=== PATIENT | male | born 1970 | race Caucasian/White ===

== ENCOUNTER 2016-06-12 12:06 | Emergency (ER) | payer OTHER ==
[2016-06-12 12:15] VITALS: O2SAT 94
--- NOTE | 2016-06-12 12:27 | CPEKG ---
Heart Rate: 90 RR Interval: 667 P-R Interval: 164 QRSD Interval: 94 QT Interval: 340 QTC Interval: 416 P [place]: 62 QRS [place]: 64 T Wave [place]: 2 EKG Severity - NORMAL ECG - EKG Impression: SINUS RHYTHM Electronically Signed By: Rj Gar 12-Jun-2016 14:32:51
[2016-06-12 12:38] LABS: % IMMATURE GRANULYOCYTES 0.3 % (0.0-1.1); ABSOLUTE IMMATURE GRANULOCYTES 0.02 10^3/uL (0.00-0.10); ADD DIFF? NO; ADD MORPH? NO; ADD SCAN? NO; ATYPICAL LYMPHOCYTE FLAG 0 (0-99); FRAGMENT RBC FLAG 0 (0-99); HEMATOCRIT 47.3 % (40.0-51.0); HEMOGLOBIN 16.1 g/dL (13.7-17.5); LEFT SHIFT FLG 0 (0-99); LIPEMIA HEMOLYSIS FLAG 90 (0-99); MEAN CELL VOLUME 91.1 fL (81.5-99.8); MEAN PLATELET VOLUME 9.8 fL (8.7-11.7); PLATELET CLUMPS FLAG 10 (0-99); PLATELET COUNT 204 10^3/uL (150-400); RED BLOOD CELL COUNT 5.19 10^6/uL (4.40-6.38); RED CELL DISTRIBUTION WIDTH 13.1 % (11.5-15.2)
--- NOTE | 2016-06-12 12:53 | EDPHY ---
H & P Stated Complaint: cp/tx for lymes disease Time Seen by Provider: 06/12/16 12:47 HPI/ROS: HPI: 46-year-old male presents to emergency department with chief concern 09/08 nonradiating, non pleuritic, anterior midsternal chest pain/pressure. Onset at 10:30 a.m. while he was walking at work. Denies fever, chills, dizziness, shortness of breath, nausea, vomiting, diarrhea. Reports ongoing chest pain since he was a child. Had his 1st stress test at age 14. Last stress test [address] Flores of [facility]. Has had URI symptoms for 3 weeks including nasal congestion and cough. Diagnosed with Lyme disease and has had exacerbation of chest pain since last fall. Started on doxycycline and nystatin last week. No recent travel. No calf pain or swelling. Never smoker. History of hypertension for which she takes lisinopril. ROS:10 point review of systems is negative other than as stated in HPI Source: Patient Exam Limitations: No limitations - Personal History Current Tetanus/Diphtheria Vaccine: Unsure - Medical/Surgical History Hx Asthma: No Hx Chronic Respiratory Disease: No Hx Diabetes: No Hx Cardiac Disease: No Hx Renal Disease: No Hx Cirrhosis: No Hx Alcoholism: No Hx HIV/AIDS: No Hx Splenectomy or Spleen Trauma: No Other PMH: HIGH CHOLESTEROL, HTN,. "IRREGULAR HEARTBEAT" - Family History Significant Family History: No pertinent family hx - Social History Smoking Status: Never smoked Alcohol Use: Rarely Drug Use: None - Physical Exam Exam: Vital signs reviewed by me General: Awake, alert, calm, cooperative. No acute distress. Head: Normalocephalic. Atraumatic. EENT: PERRLA. EOMI. No pallor or injection. Anicteric. No nystagmus. No injection. TMs intact bilaterally with normal landmarks. No rhinnorhea, nasal passages clear. Oropharynx without redness, exudates, or lesions. Tonsils 2+ bilaterally, no exudates. Neck: Supple, nontender. No lymphadenopathy. Full range of motion. No meningismus. Respiratory: Breathing unlabored. Breath sounds equal bilaterally and clear to auscultation. No adventitious sounds. CV: Chest nontender, atraumatic. Heart rate regular. No murmur, distal pulses 2+ bilaterally. Brisk cap refill all extremities. GI: Abdomen soft, nontender. Bowel sounds normoactive and positive x4 quadrants. Neuro: Alert. Oriented x 3. Speech clear. Nonfocal cranial nerves throughout. Sensation intact all extremities. Skin: Skin warm, dry, intact. Skin turgor normal. Extremities: Full range of motion in all 4 extremities. Strength 5+ all extremities. Constitutional: Initial Vital Signs Temperature (C) 36.7 C 06/12/16 12:13 Heart Rate 92 06/12/16 12:13 Respiratory Rate 18 06/12/16 12:13 Blood Pressure 138/91 H 06/12/16 12:13 O2 Sat (%) 94 06/12/16 12:13 O2 Delivery Mode Room Air Allergies/Adverse Reactions: No Known Allergies Allergy (Verified 06/12/16 12:12) Home Medications: Medication Instructions Recorded Doxycycline Calcium 06/12/16 Nystatin 06/12/16 Medical Decision Making - Diagnostics Imaging: Chest, PA and Lateral History: Chest pain Comparison: PA 03/08/2009, PA and lateral 01/18/2009 Findings: Lungs are clear, without pulmonary nodule, infiltrate or consolidation. Heart size and pulmonary vascularity are normal. There is no adenopathy or mass lesion. There is no pleural effusion or pneumothorax. There is no free air beneath either hemidiaphragm. There is chronic degenerative spurring in the lower thoracic spine. Bones are unremarkable for age. EKG leads overlie the chest. Impression: Stable. Nothing acute identified. Dictated By: Rj Oakley MD ED Course/Re-evaluation: 38-year-old male presents to emergency department with chest pain x1 hour. at onset, 2/10 now. Has a history of chest pain since he was a child. Recently diagnosed with Lyme disease and began doxy and nystatin. Has had URI symptoms for 3 weeks. Afebrile. Heart rate 92. 94% on room air. EKG sinus rhythm, rate 90, normal intervals, no axis deviation, no evidence of acute ischemia. No evidence of dysrhythmia. Troponin is negative. Chest x-ray negative for anything acute. Will have him follow up with primary care tomorrow. At time of discharge vitals are stable, he has no pain. Differential Diagnosis: Differential diagnosis includes but is not limited to non cardiac etiology for chest pain including costochondritis or musculoskeletal pain, anxiety, acute coronary syndrome, pneumothorax, pulmonary embolism, pneumonia, Lyme disease - Data Points Laboratory Results: Laboratory Results 06/12/16 12:32 06/12/16 12:32 06/12/16 06/12/16 12:32 12:32 WBC 6.24 10^3/uL 10^3/uL (3.80-9.50) RBC 5.19 10^6/uL 10^6/uL (4.40-6.38) Hgb 16.1 g/dL g/dL (13.7-17.5) Hct 47.3 % % (40.0-51.0) MCV 91.1 fL fL (81.5-99.8) MCH 31.0 pg pg (27.9-34.1) MCHC 34.0 g/dL g/dL (32.4-36.7) RDW 13.1 % % (11.5-15.2) Plt Count 204 10^3/uL 10^3/uL (150-400) MPV 9.8 fL fL (8.7-11.7) Neut % (Auto) 68.1 % % (39.3-74.2) Lymph % (Auto) 24.7 % % (15.0-45.0) [place] % (Auto) 5.8 % % (4.5-13.0) Eos % (Auto) 0.6 % % (0.6-7.6) Baso % (Auto) 0.5 % % (0.3-1.7) Nucleat RBC Rel Count 0.0 % % (0.0-0.2) Absolute Neuts (auto) 4.25 10^3/uL 10^3/uL (1.70-6.50) Absolute Lymphs (auto) 1.54 10^3/uL 10^3/uL (1.00-3.00) Absolute Monos (auto) 0.36 10^3/uL 10^3/uL (0.30-0.80) Absolute Eos (auto) 0.04 10^3/uL 10^3/uL (0.03-0.40) Absolute Basos (auto) 0.03 10^3/uL 10^3/uL (0.02-0.10) Absolute Nucleated RBC 0.00 10^3/uL 10^3/uL (0-0.01) Immature Gran % 0.3 % % (0.0-1.1) Immature Gran # 0.02 10^3/uL 10^3/uL (0.00-0.10) Sodium 141 mEq/L mEq/L (134-144) Potassium 4.5 mEq/L mEq/L (3.5-5.2) Chloride 105 mEq/L mEq/L (97-110) Carbon Dioxide 23 mEq/l mEq/l (22-31) Anion Gap 13 mEq/L mEq/L (8-16) BUN 15 mg/dL mg/dL (7-23) Creatinine 0.8 mg/dL mg/dL (0.7-1.3) Estimated GFR > 60 Glucose 132 mg/dL H mg/dL (70-100) Calcium 9.3 mg/dL mg/dL (8.5-10.4) Troponin I < 0.012 ng/mL ng/mL (0-0.034) Departure - Departure Disposition: Home, Routine, Self-Care Clinical Impression: Chest pain in adult Condition: Good Instructions: Chest Pain (ED) Additional Instructions: Plan: Follow up with primary care tomorrow for recheck without fail--When you call to schedule appointment, please let the office know you are an "ER follow up" appointment" You may use 600 mg of ibuprofen every 6 hours for fever, inflammation, or pain. Always take ibuprofen with food and stay well hydrated while taking. Do not exceed the maximum allowable dose in a 24 hour period which is 2400 mg. You may use 1000 mg of Tylenol every 8 hours. This may be staggered with the ibuprofen. Do not exceed the maximum dose in a 24 hour period which is 3 GM or 3000 mg. Referrals: Junie Whaley MD [Primary Care Provider] - As per Instructions
[2016-06-12 13:01] LABS: ANION GAP 13 mEq/L (8-16); CALCIUM 9.3 mg/dL (8.5-10.4); CARBON DIOXIDE 23 mEq/l (22-31); CHLORIDE 105 mEq/L (97-110); CREATININE 0.8 mg/dL (0.7-1.3); GLOMERULAR FILTRATION RATE > 60; GLUCOSE 132 mg/dL (70-100); POTASSIUM 4.5 mEq/L (3.5-5.2); SODIUM 141 mEq/L (134-144)
[2016-06-12 13:13] LABS: TROPONIN I < 0.012 ng/mL (0-0.034)
[2016-06-12 14:17] VITALS: BP 128/78; PULSE 70; RESP 14; TEMP 98.4
== END 2016-06-12 14:16 | disposition home or self-care (01) ==
DX: R07.89 Other chest pain (principal)

== ENCOUNTER → 2018-01-10 | Outpatient (CLI) | payer OTHER | LOC: FIMAGING 08:00 | DX: R16.0 Hepatomegaly, not elsewhere classified (principal); E88.89 Other specified metabolic disorders ==

== ENCOUNTER 2018-05-27 08:27 | Day surgery (SDC) | payer OTHER ==
[2018-05-27] MEDS ORDERED: NS 1,000 ML IV ONE (08:29)
[2018-05-27] MEDS ORDERED: DIAZEPAM 5 MG TAB PO ONE (08:29)
[2018-05-27] MEDS ORDERED: FAMOTIDINE 20 MG TAB PO ONE (08:29)
[2018-05-27] MEDS ORDERED: diphenhydrAMINE 25 MG CAP PO ONE ×2 (08:29→09:07)
[2018-05-27] MEDS ORDERED: ASPIRIN EC 325 MG TAB PO ONE ×2 (08:29→09:07)
[2018-05-27] MEDS ORDERED: FAMOTIDINE 20 MG TAB ONE (09:07)
[2018-05-27] MEDS ORDERED: DIAZEPAM 5 MG TAB ONE (09:08)
[2018-05-27 09:17] LABS: PLATELET COUNT 198 10^3/uL (150-400)
[2018-05-27 09:24] LABS: PROTIME(PATIENT) 13.4 SEC (12.0-15.0)
[2018-05-27] MEDS ORDERED: LIDOCAINE 1% 300 MG/30 ML SDV ONE (10:37)
[2018-05-27] MEDS ORDERED: IOPAMIDOL (ISOVUE-370) 150 ML BTL IV ONE (10:38)
[2018-05-27] MEDS ORDERED: fentaNYL 100 MCG/2 ML INJ ONE (10:38)
[2018-05-27] MEDS ORDERED: VERAPAMIL 5 MG/2 ML VIAL ONE (10:38)
[2018-05-27] MEDS ORDERED: HEPARIN 10,000 UNIT/10 ML MDV (1,000 UNIT/ML) ONE (10:38)
[2018-05-27] MEDS ORDERED: MIDAZOLAM 2 MG/2 ML VIAL ONE (10:38)
--- NOTE | 2018-05-27 11:07 | PDHPUP ---
History & Physical Update H&P update statement: This history and physical update is based on an assessment of the patient which was completed after admission or registration (within 24 hours), but prior to the surgery/procedure. H&P update: H&P reviewed & patient examined, no change in patient's condition since H&P completed (Normal Lucien test on right wrist at less than 5 sec.)
--- NOTE | 2018-05-27 11:08 | PDPROPOC ---
Sedation Plan of Care Sedation Plan of Care: vital signs stable, mental status noted, patient educated of risks, benefits, alternatives, patient can tolerate sedation ASA Classification: ASA 1 Planned drugs: fentanyl, midazolam Mallampati Score: Class 1 Mallampati Reference Image: Patient passed 3-3-2 rule?: Yes
[2018-05-27] MEDS ORDERED: ATROPINE SULFATE 1 MG/10 ML SYR IVP PRN (11:44)
[2018-05-27] MEDS ORDERED: HYDROCODONE/APAP 5/325 TAB PO PRN (11:44)
[2018-05-27] MEDS ORDERED: ONDANSETRON 4 MG/2 ML VIAL IVP PRN (11:44)
--- NOTE | 2018-05-27 11:51 | PDDXCAT ---
Diagnostic Cath Note - . Date: 05/27/18 Mold Unloader: Srinivas Indication: other (Fatigue, atypical chest pain, and abnormal nuclear stress test.) - Procedure Access: right wrist Procedure: left heart catheterization, coronary angiography, left ventriculogram - Materials Left Heart Cath size: 5F Left Heart Cath materials: pigtail, other (TIG and JL 3.5) - Findings-Left Heart Catheterization LM: Short, normal. LAD: Angiographically normal. LCX: Angiographically normal. RCA: Angiographically normal. EDP: 11 mmHg LVEF: 70% Wall motion: Normal Estimated blood loss: <50ml Closure method: TR Band Assessment: 1) Angiographically normal coronary arteries. 2) Normal LV systolic function.
== END 2018-05-27 15:02 | disposition home or self-care (01) ==
LOC: FCATH 08:27
PROVIDERS: ATTEND Internal Medicine Interventional Cardiology
DX: R07.9 Chest pain, unspecified (principal); R94.39 Abnormal result of other cardiovascular function study; R53.83 Other fatigue; I10 Essential (primary) hypertension; E78.5 Hyperlipidemia, unspecified; E66.9 Obesity, unspecified; Z86.19 Personal history of other infectious and parasitic diseases; Z82.49 Family history of ischemic heart disease and other diseases of the circulatory system
CPT/HCPCS: C1769; J1644; J2250; J3010; Q9967